=== PATIENT | male | born 1985 | race Caucasian/White ===

== ENCOUNTER 2020-12-28 08:19 | Day surgery (SDC) | payer OTHER ==
[~2020-12-28] VITALS: Ht 180.3 cm; Wt 71.2 kg
[2020-12-28 09:27] VITALS: BP 130/83; Ht 180.3 cm; Wt 71.2 kg
--- NOTE | 2020-12-28 14:11 | HP ---
PATIENT: ELENITA GARY MEDICAL RECORD: [id number] ACCOUNT: [id number] LOCATION:[facility] : 87 ADMISSION DATE: 12/28/20 PCP: No PCP HISTORY AND PHYSICAL EXAMINATION CHIEF COMPLAINT: Right inguinal hernia. HISTORY OF PRESENT ILLNESS: The patient has a symptomatic right inguinal hernia. I performed my history and physical examination through tele-health over Zoom. I have examined the patient today. The risks, possible complications, and alternatives of the procedure were explained to the patient. He elects to proceed. I specifically discussed with him that we would be using mesh. We also discussed the possibility of bleeding requiring emergency reoperation, infection, intestinal injury as well as recurrence. PAST MEDICAL AND SURGICAL HISTORY: Hepatitis C. REVIEW OF SYSTEMS: Negative for coronary artery disease, CVA or seizures. Negative for diabetes or thyroid problems. MEDICINES: At the senior care, none. ALLERGIES: No known drug allergies. SOCIAL HISTORY: Former smoker. PHYSICAL EXAMINATION: GENERAL: The patient does not appear acutely ill. He does not appear chronically ill. VITAL SIGNS: Reviewed. EARS: External ears appear normal. EYES: Extraocular movements are intact. NECK: Trachea is midline. CHEST: No intercostal retractions. PULMONARY: Nonlabored. No stridor. ABDOMEN: Nontender. IMPRESSION: Symptomatic right inguinal hernia. PLAN: Open right inguinal hernia repair with mesh. TRANSINT:[id number] Voice Confirmation ID: [id number] DOCUMENT ID: [id number] cc: Nabila Bower APN [facility] [phone] DEVON HUITRON MD at 1411 CC: [id number] DICTATION DATE: 12/28/20 1252 [employer] OPERATOR: 12/28/20 1318 [facility] [address] [place] [address]
--- NOTE | 2020-12-28 20:01 | NUR ---
1835 - PATIENT UP TO BATHROOM. ABLE TO VOID. INITIALLY URINE WAS BLOOD TINGED BUT CLEARED TOWARD THE END OF THE VOID. PATIENT WAS CATHETERIZED DURING SURGERY SO THIS IS LIKELY MILD URETHRAL TRAUMA. WILL CONTINUE TO OBSERVE AND WILL INSTRUCT PATIENT ON WHAT TO WATCH FOR AND WHAT TO REPORT.
--- NOTE | 2020-12-28 20:03 | NUR ---
1830 - IV D/C'D WITH TIP INTACT. PATIENT ABOUT TO GET UP TO BATHROOM TO TRY TO VOID.
--- NOTE | 2020-12-28 20:04 | NUR ---
185 - DISCHARGE INSTRUCTIONS REVIEWED WITH PATIENT. PROVIDED HIM WITH AN ICE BAG TO ICE THE SURGICAL AREA DURING HIS RIDE BACK TO THE LONGTERM. ALSO MEDICATED HIM WITH HYDROCODONE 10/325 ONE PO DUE TO RISING PAIN LEVEL AND 3 HOUR RIDE BACK TO LONGTERM.
--- NOTE | 2020-12-28 20:06 | NUR ---
1909 - PATIENT DISCHARGED VIA WHEELCHAIR TO LONGTERM VAN. 2 GUARDS IN ATTENDANCE.
--- NOTE | 2020-12-29 09:51 | OP ---
PATIENT NAME: ELENITA GARY MEDICAL RECORD: [id number] :87 LOCATION:[facility] ADMISSION DATE: SURGEON: DEVON HUITRON MD DATE OF OPERATION: 12/28/2020 PREOPERATIVE DIAGNOSIS: Symptomatic right inguinal hernia. POSTOPERATIVE DIAGNOSIS: Symptomatic non-incarcerated right indirect inguinal hernia. PROCEDURE: Right indirect inguinal hernia repair with bilayer preperitoneal polypropylene mesh. SURGEON: Devon Huitron MD FUND CONTROLLER: None. BLOOD LOSS: Minimal. ANESTHESIA: General. COMPLICATIONS: None. The risks, possible complications, and alternatives of the procedure were explained to the patient. He elects to proceed. The discussion specifically included, but was not limited to, bleeding requiring emergency reoperation, infection, intestinal injury as well as recurrence. OPERATIVE COURSE: The patient was conveyed to the operating room electively on 12/28/2020. General anesthesia was induced by the anesthesia staff. The abdomen and genitals were sterilely prepped and draped. A transverse incision was accomplished in the right groin. Sharp dissection was carried down through skin and subcutaneous tissue as well as Andres's fascia. The external oblique aponeurosis was then opened along the direction of its fibers. I bluntly dissected down through the internal oblique and transversus abdominis muscles. A preperitoneal pocket was fashioned bluntly. An indirect hernia was reduced in its entirety. I opened the hernia sac. There were no incarcerated contents. No sliding component. I then ligated the sac highly with a 3-0 Vicryl suture. I transected the sac distal to this. I then cut 2 ovals of the polypropylene mesh. The 2 ovals were sutured one on top of the other with a running #1 Surgidac. The mesh was placed in the preperitoneal space. Once I was satisfied with the placement of the mesh, I allowed the transversus abdominis and internal oblique muscles to come together. These were sutured together with multiple interrupted horizontal mattress 0 Surgidacs. I incorporated a portion of the mesh with these sutures. The external oblique aponeurosis was then closed with running #1 Vicryls. Andres's fascia was approximated with interrupted 3-0 Vicryl. The subdermis was approximated with interrupted 3-0 Vicryl. The skin was approximated with a running intracuticular 3-0 Vicryl. Benzoin and Steri-Strips were applied. The patient was then extubated and conveyed to the postanesthesia care unit where he was in stable condition. TRANSINT:[id number] Voice Confirmation ID: [id number] DOCUMENT ID: [id number] OPERATIVE REPORT [id number] ELENITA GARY 12/29/2020 Edited for CC. cc: Nabila Bower APN at [facility] [phone] DEVON HUITRON MD at 0951 CC: [id number] DICTATION DATE: 12/28/20 1415 VP PRODUCT MARKETING: 12/28/20 1455 [facility] 12/28/20 [facility] [address] [place] [address]
== END 2020-12-28 19:10 | disposition home or self-care (01) ==
LOC: D.OPS 08:19
PROVIDERS: ATTEND Surgery
DX: K40.90 Unilateral inguinal hernia, without obstruction or gangrene, not specified as recurrent (principal); B19.20 Unspecified viral hepatitis C without hepatic coma